=== PATIENT | male | born 1990 | race Caucasian/White ===

== ENCOUNTER 2019-09-10 15:56 | Emergency (ER) | payer OTHER ==
[2019-09-10] MEDS ORDERED: ACETAMINOPHEN 325 MG TABLET PO ONE (16:28)
--- NOTE | 2019-09-10 17:16 | RADIOLOGY REPORT (SQ) ---
EXAM DESCRIPTION: CHEST 2 VIEWS COMPLETED DATE/TIME: 09/10/2019 4:58 pm REASON FOR STUDY: SOB COMPARISON: None. NUMBER OF VIEWS: Two view. TECHNIQUE: Frontal and lateral radiographic views of the chest acquired. LIMITATIONS: None. FINDINGS: LUNGS AND PLEURA: Peribronchial cuffing and interstitial changes. No consolidation, effus ion, or pneumothorax. MEDIASTINUM AND HILAR STRUCTURES: No masses. No contour abnormalities. HEART AND VASCULAR STRUCTURES: Heart normal in size and contour. No evidence for failure. BONES: No acute findings. HARDWARE: None in the chest. OTHER: No other significant finding. IMPRESSION: REACTIVE AIRWAY DISEASE VERSUS VIRAL SYNDROME. NO CONSOLIDATION. TECHNICAL DOCUMENTATION: JOB ID: [id number] [employer]- All Rights Reserved Reading location - IP/workstation name: [email or web address]
[2019-09-10 17:35] VITALS: BP 118/75
--- NOTE | 2019-09-10 17:37 | ER Document Report ---
HPI - HPI Patient complains to provider of: fever Time Seen by Provider: 09/10/19 16:28 Pain Level: 4 Context: Patient is an otherwise healthy 29-year-old male presents to the emergency department with a fever for the last 4 days. Patient also voices for generalized cough and congestion. States he also has a sore throat. Patient voices he is up-to-date on immunizations, takes no daily medications, voices an allergy to penicillin. Patient is denying any nausea, vomiting, shortness of breath, chest pain. Patient voices his and child were recently diagnosed with pneumonia. Voices last time he took Motrin was approximately 1400 hrs. - CONSTITUTIONAL Constitutional: REPORTS: Fever - RESPIRATORY Respiratory: REPORTS: Coughing Past Medical History - General Information source: Patient - Social History Smoking Status: Never Smoker Chew tobacco use (# tins/day): No Frequency of alcohol use: Occasional Drug Abuse: None Family History: Reviewed & Not Pertinent Patient has suicidal ideation: No Patient has homicidal ideation: No Vertical Provider Document - CONSTITUTIONAL Agree With Documented VS: Yes Notes: GENERAL: Alert, interacts well. No acute distress. HEAD: Normocephalic, atraumatic. EYES: Pupils equal, round, and reactive to light. Extraocular movements intact. ENT: Oral mucosa moist, tongue midline. Nares patent, TM's intact, nonerythematous, nonbulging bilaterally. Pharynx minorly erythematous, tonsils +2 bilaterally and symmetrical. Exudate noted. No palatal petechiae noted. NECK: Full range of motion. Supple. Trachea midline. No lymphadenopathy appreciated LUNGS: Clear to auscultation bilaterally, no wheezes, rales, or rhonchi. No respiratory distress. HEART: Regular rate and rhythm. No murmur ABDOMEN: Soft, non-tender. Non-distended. Bowel sounds present in all 4 quadrants. EXTREMITIES: Moves all 4 extremities spontaneously. No edema, normal radial and dorsalis pedis pulses bilaterally. No cyanosis. BACK: no cervical, thoracic, lumbar midline tenderness. No saddle anesthesia, normal distal neurovascular exam. NEUROLOGICAL: Alert and oriented x3. Normal speech. cranial nerves II through XII grossly intact. PSYCH: Normal affect, normal mood. SKIN: Warm, dry, normal turgor. No rashes or lesions noted. Course - Re-evaluation Re-evalutation: 09/10/19 17:35 Laboratory 09/10/19 16:30 Group A Strep Rapid NEGATIVE Chest X-Ray 09/10/19 16:28 IMPRESSION: REACTIVE AIRWAY DISEASE VERSUS VIRAL SYNDROME. NO CONSOLIDATION. Discussed with patient likely diagnosis of viral illness. Discussed staying up on Tylenol or Motrin for generalized fevers and body aches. Discussed staying well-hydrated. Discussed close follow-up with primary care provider. Patient stable for discharge. - Vital Signs Vital signs: Temp Pulse Resp BP Pulse Ox 98.8 F 107 H 16 132/73 H 97 09/10/19 16:01 09/10/19 16:01 09/10/19 16:01 09/10/19 16:01 09/10/19 16:01 Discharge - Discharge Clinical Impression: Sore throat Upper respiratory infection Qualifiers: URI type: unspecified viral URI Qualified Code(s): J06.9 - Acute upper respiratory infection, unspecified Condition: Stable Disposition: HOME, SELF-CARE Instructions: Fever ([facility]), Sore Throat ([facility]), Upper Respiratory Illness ([facility]), Viral Syndrome ([facility]) Additional Instructions: As we discussed you have been seen and treated in the emergency department for an upper respiratory infection. Your chest x-ray reveals no signs of pneumonia. Your rapid strep test was negative for bacteria. We do always send your rapid strep test for culture. Should it grow bacteria in the hospital will call you. Please take [id number] Tylenol or Motrin for generalized body aches and fevers. Please also stay well-hydrated. Please follow-up with your primary care provider in the next 12 to 24 hours. Return to the emergency room for any concerns. Prescriptions: Benzonatate [Tessalon Perles 100 mg Capsule] 100 mg PO Q8HP PRN #40 capsule PRN Reason: Forms: Return to Work
== END 2019-09-10 17:44 | disposition home or self-care (01) ==
LOC: ER 15:56
DX: J06.9 Acute upper respiratory infection, unspecified (principal); B97.89 Other viral agents as the cause of diseases classified elsewhere; R50.9 Fever, unspecified; R05 Cough; J02.9 Acute pharyngitis, unspecified; Z88.0 Allergy status to penicillin
CPT/HCPCS: 71046; 87070; 87880; 99283

== ENCOUNTER 2020-04-14 22:17 | Emergency (ER) | payer OTHER ==
[2020-04-15] MEDS ORDERED: ASPIRIN 81 MG TABLET, CHEWABLE PO ONE (00:30)
--- NOTE | 2020-04-15 00:32 | ER Document Report ---
ED Medical Screen (RME) - General Chief Complaint: Chest Pain Stated Complaint: CHEST PAIN, ANXIETY Time Seen by Provider: 04/15/20 00:25 Notes: HPI: 29-year-old male who is otherwise healthy presenting for 6 or 7 episodes of an intermittent sharp chest pain in the left chest without accompanying shortness of breath or radiation into the neck or shoulder. Patient became very concerned about the chest discomfort this evening. Currently pain-free. No family history of early coronary artery disease. Patient states that he normally works out daily and does not get exertional chest pain or significant shortness of breath with workouts. Patient did mow the lawn yesterday he is unsure whether he may have pulled something or whether this is something to be concerned about PHYSICAL EXAMINATION: No reproducible pain on the chest wall on palpation. Lung sounds are clear to auscultation regular rate and rhythm, initial onset of discomfort was 9 hours ago I have greeted and performed a rapid initial assessment of this patient. A c omprehensive ED assessment and evaluation of the patient, analysis of test results and completion of medical decision making process will be conducted by an additional ED providers. - Related Data Allergies/Adverse Reactions: amoxicillin Allergy (Verified 09/10/19 16:29) Physical Exam - Vital signs Vitals: Temp Pulse Resp BP Pulse Ox 98.8 F 77 16 138/83 H 98 04/14/20 23:05 04/14/20 23:05 04/14/20 23:05 04/14/20 23:05 04/14/20 23:05 Course - Vital Signs Vital signs: Temp Pulse Resp BP Pulse Ox 98.8 F 77 16 138/83 H 98 04/15/20 00:26 04/14/20 23:05 04/14/20 23:05 04/14/20 23:05 04/14/20 23:05
[2020-04-15 00:46] LABS: ABSOLUTE LYMPHOCYTES (AUTO) 2.5 10^3/uL (0.5-4.7); ABSOLUTE MONOCYTES (AUTO) 0.7 10^3/uL (0.1-1.4); ABSOLUTE NEUT (AUTO) 6.5 10^3/uL (1.7-8.2); BASOPHILS % (AUTO) 0.4 % (0-2); EOSINOPHILS % (AUTO) 0.4 % (0-6); HEMATOCRIT 45.1 % (37.9-51.0); LYMPHOCYTES % (AUTO) 25.4 % (13-45); MEAN CORPUSCULAR HEMOGLOBIN 31.8 pg (27.0-33.4); MEAN CORPUSCULAR HGB CONC 35.5 g/dL (32.0-36.0); MEAN CORPUSCULAR VOLUME 89 fl (80-97); MONOCYTES % (AUTO) 6.9 % (3-13); PLATELET COUNT 225 10^3/uL (150-450); RED BLOOD COUNT 5.05 10^6/uL (4.35-5.55); SEGMENTED NEUTROPHILS % (AUTO) 66.9 % (42-78); TOTAL CELLS COUNTED % (AUTO) 100 %; WHITE BLOOD COUNT 9.8 10^3/uL (4.0-10.5)
--- NOTE | 2020-04-15 00:57 | RADIOLOGY REPORT (SQ) ---
EXAM DESCRIPTION: XR CHEST 2 VIEWS COMPLETED DATE/TME: 04/15/2020 00:30 CLINICAL HISTORY: 29 years, Male, chest pain COMPARISON: None. NUMBER OF VIEWS: TECHNIQUE: LIMITATIONS: None. FINDINGS: No evidence of pulmonary infiltrate or pleural effusion. The heart and mediastinum are unremarkable. Pulmonary vascularity appears normal. IMPRESSION: Normal chest x-ray. copyright 2010 [employer]- All Rights Reserved
[2020-04-15 00:58] LABS: ALBUMIN 5.2 g/dL (3.5-5.0); ALKALINE PHOSPHATASE 74 U/L (38-126); ANION GAP 10 (5-19); ASPARTATE AMINO TRANSFERASE 29 U/L (17-59); BILIRUBIN,TOTAL 0.7 mg/dL (0.2-1.3); BLOOD UREA NITROGEN 20 mg/dL (7-20); CALCIUM 10.4 mg/dL (8.4-10.2); CARBON DIOXIDE 28 mmol/L (22-30); CHLORIDE 102 mmol/L (98-107); CREATINE KINASE 95 U/L (55-170); GLUCOSE 108 mg/dL (75-110); POTASSIUM 4.2 mmol/L (3.6-5.0); TOTAL PROTEIN 8.5 g/dL (6.3-8.2)
[2020-04-15 01:18] LABS: CREATINE KINASE MB 0.34 ng/mL (<4.55)
[2020-04-15 01:19] LABS: TROPONIN I < 0.012 ng/mL
--- NOTE | 2020-04-15 05:28 | ER Document Report ---
ED General - General Chief Complaint: Chest Pain Stated Complaint: CHEST PAIN, ANXIETY Time Seen by Provider: 04/15/20 00:25 Mode of Arrival: Ambulatory Information source: Patient Notes: 29-year-old male patient presenting to the emergency department chief complaint of left-sided chest pain that started earlier this afternoon. He reports this caused him some anxiety. He denies any nausea, vomiting, shortness of breath or diaphoresis. Denies any recent cough or congestion. Denies any increased activity. He has not had pain like this before in the past. He is a non-smoker and has no cardiac history. TRAVEL OUTSIDE OF THE [place] IN LAST 30 DAYS: No - HPI Patient complains to provider of: chest pain Onset: Yesterday Onset/Duration: Intermittent Quality of pain: Pressure Severity: Moderate Similar symptoms previously: No Recently seen / treated by doctor: No - Related Data Allergies/Adverse Reactions: amoxicillin Allergy (Verified 09/10/19 16:29) Past Medical History - General Information source: Patient - Social History Smoking Status: Never Smoker Frequency of alcohol use: None Drug Abuse: None Family History: Reviewed & Not Pertinent Patient has homicidal ideation: No - Medical History Medical History: Negative Surgical Hx: Negative - Immunizations Immunizations up to date: Yes Review of Systems - Review of Systems Constitutional: No symptoms reported EENT: No symptoms reported Cardiovascular: See HPI Respiratory: No symptoms reported Gastrointestinal: No symptoms reported Genitourinary: No symptoms reported Male Genitourinary: No symptoms reported Musculoskeletal: No symptoms reported Skin: No symptoms reported Hematologic/Lymphatic: No symptoms reported Neurological/Psychological: No symptoms reported Physical Exam - Vital signs Vitals: Temp Pulse Resp BP Pulse Ox 98.8 F 77 16 138/83 H 98 04/14/20 23:05 04/14/20 23:05 04/14/20 23:05 04/14/20 23:05 04/14/20 23:05 - Notes Notes: PHYSICAL EXAMINATION: GENERAL: Well-appearing, well-nourished and in no acute distress. HEAD: Atraumatic, normocephalic. EYES: Pupils equal round and reactive to light, extraocular movements intact, sclera anicteric, conjunctiva are normal. ENT: Nares patent, oropharynx clear without exudates. Moist mucous membranes. NECK: Normal range of motion, supple without lymphadenopathy LUNGS: Breath sounds clear to auscultation bilaterally and equal. No wheezes rales or rhonchi. HEART: Regular rate and rhythm without murmurs ABDOMEN: Soft, nontender, nondistended abdomen. No guarding, no rebound. No masses appreciated. Musculoskeletal: Normal range of motion, no pitting or edema. No cyanosis. NEUROLOGICAL: Cranial nerves grossly intact. Normal speech, normal gait. Normal sensory, motor exams PSYCH: Normal mood, normal affect. SKIN: Warm, Dry, normal turgor, no rashes or lesions noted. Course - Re-evaluation Re-evalutation: Laboratory 04/15/20 04/15/20 04/15/20 00:35 00:35 00:35 WBC 9.8 RBC 5.05 Hgb 16.0 Hct 45.1 MCV 89 MCH 31.8 MCHC 35.5 RDW 13.0 Plt Count 225 Lymph % (Auto) 25.4 [place] % (Auto) 6.9 Eos % (Auto) 0.4 Baso % (Auto) 0.4 Absolute Neuts (auto) 6.5 Absolute Lymphs (auto) 2.5 Absolute Monos (auto) 0.7 Absolute Eos (auto) 0.0 Absolute Basos (auto) 0.0 Seg Neutrophils % 66.9 Sodium 139.9 Potassium 4.2 Chloride 102 Carbon Dioxide 28 Anion Gap 10 BUN 20 Creatinine 1.19 Est GFR ( Amer) > 60 Est GFR (MDRD) Non-Af > 60 Glucose 108 Calcium 10.4 H Total Bilirubin 0.7 Direct Bilirubin 0.0 Neonat Total Bilirubin Not Reportable Neonat Direct Bilirubin Not Reportable Neonat Indirect Bili Not Reportable AST 29 ALT 30 Alkaline Phosphatase 74 Creatine Kinase 95 CK-MB (CK-2) 0.34 Troponin I < 0.012 Total Protein 8.5 H Albumin 5.2 H 04/15/20 03:20 WBC RBC Hgb Hct MCV MCH MCHC RDW Plt Count Lymph % (Auto) [place] % (Auto) Eos % (Auto) Baso % (Auto) Absolute Neuts (auto) Absolute Lymphs (auto) Absolute Monos (auto) Absolute Eos (auto) Absolute Basos (auto) Seg Neutrophils % Sodium Potassium Chloride Carbon Dioxide Anion Gap BUN Creatinine Est GFR ( Amer) Est GFR (MDRD) Non-Af Glucose Calcium Total Bilirubin Direct Bilirubin Neonat Total Bilirubin Neonat Direct Bilirubin Neonat Indirect Bili AST ALT Alkaline Phosphatase Creatine Kinase CK-MB (CK-2) Troponin I < 0.012 Total Protein Albumin Laboratory 04/15/20 04/15/20 04/15/20 00:35 00:35 00:35 WBC 9.8 RBC 5.05 Hgb 16.0 Hct 45.1 MCV 89 MCH 31.8 MCHC 35.5 RDW 13.0 Plt Count 225 Lymph % (Auto) 25.4 [place] % (Auto) 6.9 Eos % (Auto) 0.4 Baso % (Auto) 0.4 Absolute Neuts (auto) 6.5 Absolute Lymphs (auto) 2.5 Absolute Monos (auto) 0.7 Absolute Eos (auto) 0.0 Absolute Basos (auto) 0.0 Seg Neutrophils % 66.9 Sodium 139.9 Potassium 4.2 Chloride 102 Carbon Dioxide 28 Anion Gap 10 BUN 20 Creatinine 1.19 Est GFR ( Amer) > 60 Est GFR (MDRD) Non-Af > 60 Glucose 108 Calcium 10.4 H Total Bilirubin 0.7 Direct Bilirubin 0.0 Neonat Total Bilirubin Not Reportable Neonat Direct Bilirubin Not Reportable Neonat Indirect Bili Not Reportable AST 29 ALT 30 Alkaline Phosphatase 74 Creatine Kinase 95 CK-MB (CK-2) 0.34 Troponin I < 0.012 Total Protein 8.5 H Albumin 5.2 H 04/15/20 03:20 WBC RBC Hgb Hct MCV MCH MCHC RDW Plt Count Lymph % (Auto) [place] % (Auto) Eos % (Auto) Baso % (Auto) Absolute Neuts (auto) Absolute Lymphs (auto) Absolute Monos (auto) Absolute Eos (auto) Absolute Basos (auto) Seg Neutrophils % Sodium Potassium Chloride Carbon Dioxide Anion Gap BUN Creatinine Est GFR ( Amer) Est GFR (MDRD) Non-Af Glucose Calcium Total Bilirubin Direct Bilirubin Neonat Total Bilirubin Neonat Direct Bilirubin Neonat Indirect Bili AST ALT Alkaline Phosphatase Creatine Kinase CK-MB (CK-2) Troponin I < 0.012 Total Protein Albumin Chest X-Ray 04/15/20 00:30 IMPRESSION: Normal chest x-ray. copyright 2010 [employer]- All Rights Reserved Presentation of chest pain in an otherwise well appearing patient. Low clinical suspicion for ACS given clinical history, exam, EKG without ST elevations or depressions, and negative initial troponin. HEART score less than or equal to 3. PE also seems unlikely given clinical history, absence of tachycardia or dy spnea. Patient is PERC criteria negative. CXR without evidence of pneumothorax or pneumonia. No widened mediastinum. Aortic dissection also seems unlikely given history, symmetric pulses, CXR, and vitals. HEART Score: History 0 ECG 0 Age 0 Risk Factors 0 Troponin 0 Total: 0 Chest pain in a patient without evidence of cardiac or other serious etiology on workup today. I discussed with patient that, based on their age, risk factors and emergency department testing today, the likelihood that their symptoms are related to a heart attack is very low (estimated risk of heart attack or over the next 30 days of less than 1%). The patient demonstrates decision making capacity and has verbalized an understanding of these risks to me. Based on this, the patient has chosen to follow-up as an outpatient. Usual chest pain return precautions reviewed. The patient states understanding and agreement with this plan. - Vital Signs Vital signs: Temp Pulse Resp BP Pulse Ox 98.0 F 77 13 113/78 95 04/15/20 05:27 04/14/20 23:05 04/15/20 05:27 04/15/20 05:27 04/15/20 05:27 - Laboratory Result Diagrams: 04/15/20 00:35 04/15/20 00:35 Laboratory results interpreted by me: 04/15/20 00:35 Calcium 10.4 H Total Protein 8.5 H Albumin 5.2 H - EKG Interpretation by Me EKG shows normal: Sinus rhythm Rate: Normal Rhythm: NSR - Normal axis, no ST segment elevations or depressions. Discharge - Discharge Clinical Impression: Chest pain Qualifiers: Chest pain type: unspecified Qualified Code(s): R07.9 - Chest pain, unspecified Condition: Stable Disposition: HOME, SELF-CARE Additional Instructions: Chest Pain of Unclear Cause The exact cause of your chest pain isn't clear. Fortunately, there is no evidence of a dangerous medical condition. Further testing may be required to find the source of the pain. Most often, we find that this pain is coming from the chest wall -- the muscles or rib joints in the chest. But chest pain can come from the lung and lung lining, the esophagus, the heart valves or heart lining, and even the stomach or gallbladder. Rest. Eat lightly until the pain is gone. We may prescribe medicine for pain and inflammation. You should call the physician immediately if the pain radiates to the shoulder, jaw or arms; if you start to run a fever or develop a cough; or if you develop shortness of breath, or other new or alarming symptoms.
[2020-04-15 05:37] VITALS: BP 113/78
--- NOTE | 2020-04-15 12:04 | EKG REPORT ---
SEVERITY:- BORDERLINE ECG - SINUS RHYTHM PROBABLE LEFT ATRIAL ABNORMALITY : Confirmed by: Kathya Ordonez MD 15-Apr-2020 12:03:14
== END 2020-04-15 05:37 | disposition home or self-care (01) ==
LOC: ER 22:17
DX: R07.9 Chest pain, unspecified (principal); F41.9 Anxiety disorder, unspecified; Z88.0 Allergy status to penicillin
CPT/HCPCS: 36415; 71046; 80053; 82550; 82553; 84484; 85025; 93005; 93010; 99284

== ENCOUNTER 2020-05-23 10:29 | Emergency (ER) | payer OTHER ==
[2020-05-23] MEDS ORDERED: ONDANSETRON HCL INJ/PF 4 MG/2 ML SDV IV ONE (10:38)
[2020-05-23] MEDS ORDERED: KETOROLAC TROMETHAMINE INJ/PF 30 MG/1 ML SDV IV ONE (10:38)
[2020-05-23] MEDS ORDERED: NORMAL SALINE 1000 ML 1,000 ML IV ONE (10:38)
--- NOTE | 2020-05-23 10:42 | ER Document Report ---
ED Medical Screen (RME) - General Chief Complaint: Flank Pain Stated Complaint: LEFT FLANK PAIN Time Seen by Provider: 05/23/20 10:36 Notes: 29-year-old male presented to ED for complaint of severe left flank pain radiating down to his left groin area. He stated it started about 915 this morning. He states he has nausea 2. He states he has had pain off and on for the last 2 days. He states he needs to urinate more frequently than normal. Patient is alert oriented respirations regular nonlabored speaking in full sentences. I have greeted and performed a rapid initial assessment of this patient. A comprehensive ED assessment and evaluation of the patient, analysis of test results and completion of medical decision making process will be conducted by an additional ED providers. TRAVEL OUTSIDE OF THE [place] IN LAST 30 DAYS: No - Related Data Allergies/Adverse Reactions: amoxicillin Allergy (Verified 09/10/19 16:29) Past Medical History - Immunizations Immunizations up to date: Yes Physical Exam - Vital signs Vitals: Temp Pulse Resp BP Pulse Ox 98.7 F 73 18 134/89 H 100 05/23/20 10:38 05/23/20 10:38 05/23/20 10:38 05/23/20 10:38 05/23/20 10:38 Course - Vital Signs Vital signs: Temp Pulse Resp BP Pulse Ox 98.7 F 73 18 134/89 H 100 05/23/20 10:38 05/23/20 10:38 05/23/20 10:38 05/23/20 10:38 05/23/20 10:38
[2020-05-23 11:21] LABS: ABSOLUTE EOSINOPHILS # (AUTO) 0.1 10^3/uL (0.0-0.6); ABSOLUTE LYMPHOCYTES (AUTO) 2.5 10^3/uL (0.5-4.7); ABSOLUTE MONOCYTES (AUTO) 0.6 10^3/uL (0.1-1.4); ABSOLUTE NEUT (AUTO) 4.1 10^3/uL (1.7-8.2); BASOPHILS % (AUTO) 0.5 % (0-2); EOSINOPHILS % (AUTO) 0.8 % (0-6); HEMATOCRIT 47.5 % (37.9-51.0); HEMOGLOBIN 16.6 g/dL (13.5-17.0); LYMPHOCYTES % (AUTO) 34.3 % (13-45); MEAN CORPUSCULAR HEMOGLOBIN 31.2 pg (27.0-33.4); MEAN CORPUSCULAR VOLUME 89 fl (80-97); MONOCYTES % (AUTO) 7.6 % (3-13); PLATELET COUNT 228 10^3/uL (150-450); RED BLOOD COUNT 5.33 10^6/uL (4.35-5.55); RED CELL DISTRIBUTION WIDTH 13.2 % (11.5-14.0); SEGMENTED NEUTROPHILS % (AUTO) 56.8 % (42-78); TOTAL CELLS COUNTED % (AUTO) 100 %; WHITE BLOOD COUNT 7.3 10^3/uL (4.0-10.5)
[2020-05-23 11:42] LABS: ALBUMIN 4.9 g/dL (3.5-5.0); ALKALINE PHOSPHATASE 78 U/L (38-126); ANION GAP 11 (5-19); ASPARTATE AMINO TRANSFERASE 28 U/L (17-59); BILIRUBIN,TOTAL 1.3 mg/dL (0.2-1.3); BLOOD UREA NITROGEN 15 mg/dL (7-20); CALCIUM 10.1 mg/dL (8.4-10.2); CARBON DIOXIDE 22 mmol/L (22-30); CHLORIDE 105 mmol/L (98-107); GLUCOSE 151 mg/dL (75-110); TOTAL PROTEIN 8.1 g/dL (6.3-8.2)
[2020-05-23 11:50] LABS: APPEARANCE,URINE SLIGHTLY-CLOUDY; BILIRUBIN,URINE NEGATIVE (NEGATIVE); COLOR,URINE YELLOW; GLUCOSE, URINE NEGATIVE (NEGATIVE); KETONES,URINE NEGATIVE (NEGATIVE); LEUKOCYTE ESTERASE,URINE NEGATIVE (NEGATIVE); NITRITE,URINE NEGATIVE (NEGATIVE); PROTEIN,URINE 30 mg/dL (NEGATIVE); URINE SPECIFIC GRAVITY 1.027
--- NOTE | 2020-05-23 12:04 | RADIOLOGY REPORT (SQ) ---
EXAM DESCRIPTION: CT ABD/PELVIS NO ORAL OR IV IMAGES COMPLETED DATE/TIME: 05/23/2020 11:36 am REASON FOR STUDY: left flank pain nausea COMPARISON: None. TECHNIQUE: CT scan of the abdomen and pelvis performed without intravenous or oral contrast. Images reviewed with lung, soft tissue, and bone windows. Reconstructed coronal and sagittal MPR images revi ewed. All images stored on PACS. All CT scanners at this facility use dose modulation, iterative reconstruction, and/or weight based d osing when appropriate to reduce radiation dose to as low as reasonably achievable (ALARA). [facility]: Dose Right [facility]: CareDose [facility]: Dose Right [facility]: Teradose 4D [facility]: LumiGrow RADIATION DOSE: CT Rad equipment meets quality standard of care and radiation dose reduction techniq ues were employed. CTDIvol: 5.4 mGy. DLP: 317 mGy-cm.mGy. LIMITATIONS: None. FINDINGS: LOWER CHEST: No significant findings. No nodules or infiltrates. NON-CONTRASTED LIVER, SPLEEN, ADRENALS: Evaluation limited by lack of IV contrast. No identified sign ificant masses. PANCREAS: No masses. No peripancreatic inflammatory changes. GALLBLADDER: No identified stones by CT criteria. No inflammatory changes to suggest cholecystitis. RIGHT KIDNEY AND URETER: No suspicious masses. Assessment limited by lack of IV contrast. No signif icant calcifications. No hydronephrosis or hydroureter. LEFT KIDNEY AND URETER: No suspicious masses. Assessment limited by lack of IV contrast. No signifi cant calcifications. No hydronephrosis or hydroureter. AORTA AND RETROPERITONEUM: No aneurysm. No retroperitoneal masses or adenopathy. BOWEL AND PERITONEAL CAVITY: No obvious masses or inflammatory changes. No free fluid. APPENDIX: Normal. PELVIS, BLADDER, AND ABDOMINAL WALL:No abnormal masses. No free fluid. Bladder normal. BONES: No significant findings. OTHER: No other significant finding. IMPRESSION: NO SIGNIFICANT OR ACUTE PROCESS IN THE ABDOMEN OR PELVIS. COMMENT: Quality ID # [id number]: Final reports with documentation of one or more dose reduction techniques (e.g., Automated exposure control, adjustment of the mA and/or kV according to patient size, use of iterative reconstruction technique) TECHNICAL DOCUMENTATION: JOB ID: [id number] 2010 [employer]- All Rights Reserved Reading location - IP/workstation name: [email or web address]
--- NOTE | 2020-05-23 12:37 | ER Document Report ---
ED General - General Chief Complaint: Flank Pain Stated Complaint: LEFT FLANK PAIN Time Seen by Provider: 05/23/20 10:36 Mode of Arrival: Ambulatory Information source: Patient TRAVEL OUTSIDE OF THE [place] IN LAST 30 DAYS: No - HPI Notes: Patient presents with the sudden onset of severe sharp left flank pain. He states he is had 2 separate episodes over this morning. He states he was in a normal state of health until this. Nothing made the pain better or worse. It did radiate down the left lower part of his abdomen. He states he has had some urgency but otherwise no problems with urination. He has not noticed any blood. No previous history of kidney stones. No recent trauma. He was nauseous but no vomiting or diarrhea. No fevers. The pain is been intermittent and severe. - Related Data Allergies/Adverse Reactions: amoxicillin Allergy (Verified 05/23/20 10:50) Past Medical History - General Information source: Patient - Social History Smoking Status: Never Smoker Frequency of alcohol use: None Drug Abuse: None Family History: Reviewed & Not Pertinent - Immunizations Immunizations up to date: Yes Review of Systems - Review of Systems Constitutional: denies: Chills, Fever Cardiovascular: denies: Chest pain, Palpitations Respiratory: denies: Cough, Short of breath -: Yes All other systems reviewed and negative Physical Exam - Vital signs Vitals: Temp Pulse Resp BP Pulse Ox 98.7 F 73 18 134/89 H 100 05/23/20 10:38 05/23/20 10:38 05/23/20 10:38 05/23/20 10:38 05/23/20 10:38 Interpretation: Normal - General General appearance: Appears well, Alert - HEENT Head: Normocephalic, Atraumatic Eyes: Normal Pupils: PERRL - Respiratory Respiratory status: No respiratory distress Chest status: Nontender Breath sounds: Normal Chest palpation: Normal - Cardiovascular Rhythm: Regular Heart sounds: Normal auscultation Murmur: No - Abdominal Inspection: Normal Distension: No distension Bowel sounds: Normal Tenderness: Nontender Organomegaly: No organomegaly - Back Back: Normal, Nontender - Extremities General upper extremity: Normal inspection, Nontender, Normal color, Normal ROM, Normal temperature General lower extremity: Normal inspection, Nontender, Normal color, Normal ROM, Normal temperature, Normal weight bearing. No: Garcia's sign - Neurological Neuro grossly intact: Yes Cognition: Normal Orientation: AAOx4 Caprice Coma Scale Eye Opening: Spontaneous Caprice Coma Scale Verbal: Oriented Caprice Coma Scale Motor: Obeys Commands Caprice Coma Scale Total: 15 Speech: Normal Motor strength normal: LUE, RUE, LLE, RLE Sensory: Normal - Psychological Associated symptoms: Normal affect, Normal mood - Skin Skin Temperature: Warm Skin Moisture: Dry Skin Color: Normal Course - Re-evaluation Re-evalutation: 05/23/20 12:35 Patient presents with an episode of severe left flank pain that is very consistent with a kidney stone. His urine shows blood which would also be consistent with a kidney stone. There are a few white cells so we will treat the patient with [address] is unremarkable so it appears the patient has passed the stone at this time. - Vital Signs Vital signs: Temp Pulse Resp BP Pulse Ox 98.7 F 73 18 134/89 H 100 05/23/20 10:38 05/23/20 10:38 05/23/20 10:38 05/23/20 10:38 05/23/20 10:38 - Laboratory Result Diagrams: 05/23/20 11:09 05/23/20 11:09 Laboratory results interpreted by me: 05/23/20 05/23/20 11:09 11:09 Glucose 151 H Urine Protein 30 H Urine Blood MODERATE H Urine Urobilinogen 2.0 H - Diagnostic Test Radiology reviewed: Image reviewed, Reports reviewed Discharge - Discharge Clinical Impression: Ureteral stone Condition: Stable Disposition: HOME, SELF-CARE Instructions: Kidney Stone ([facility]) Prescriptions: Nitrofurantoin Monohyd/M-Cryst [Macrobid 100 mg Capsule] 100 mg PO BID 3 Days #6 cap Forms: Return to Work Referrals: ANI ALTAMIRANO MD [NO LOCAL MD] - Follow up as needed
[2020-05-23 12:44] VITALS: BP 112/63
== END 2020-05-23 12:43 | disposition home or self-care (01) ==
LOC: ER 10:29
DX: N20.1 Calculus of ureter (principal); R10.9 Unspecified abdominal pain; R31.9 Hematuria, unspecified; R11.0 Nausea; Z88.0 Allergy status to penicillin
CPT/HCPCS: 99285; 96374; 96375; 36415; 87086; 85025; 80053; 81001; 74176; J1885; J2405; J7030

== ENCOUNTER 2020-06-07 08:43 | Emergency (ER) | payer OTHER ==
--- NOTE | 2020-06-07 10:06 | ER Document Report ---
ED General - General Chief Complaint: Possible Kidney Stone Stated Complaint: LEFT FLANK PAIN Time Seen by Provider: 06/07/20 09:05 TRAVEL OUTSIDE OF THE [place] IN LAST 30 DAYS: No - HPI Notes: Chief complaint: Left flank pain History of present illness: 29-year-old male previously seen here approximately [address] Cleaning with what was felt clinically to be an episode of renal colic now returns with recurrence of similar pain though far less severe than his previous episode. I reviewed notes from his prior visit. We note that he had a normal noncontrast CT abdomen pelvis at that time. His urinalysis showed a few white cells and a few red cells. Patient was advised that he had probably already passed a small stone and was sent out on some Macrobid and advised to follow-up with urology outpatient and also to increase oral fluids. He was asymptomatic up until this morning when he developed sharp pain in his left flank area about 4/10 intensity. This was nonradiating. There was no associated nausea, vomiting, fever or chills. He denies any dysuria. He denies any known family history of renal stones. Patient has not been back to see urology. He is no longer taking any medications. Has a history of allergy to amoxicillin. 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 - Related Data Allergies/Adverse Reactions: amoxicillin Allergy (Verified 06/07/20 09:12) Past Medical History - General Information source: Patient, [facility], [facility] Records - Social History Smoking Status: Never Smoker Frequency of alcohol use: Occasional Drug Abuse: None Lives with: Family Family History: Reviewed & Not Pertinent - Medical History Medical History: Negative Renal/ Medical History: Reports: Hx Kidney Stones Surgical Hx: Negative - Immunizations Immunizations up to date: Yes Review of Systems - Review of Systems Notes: Constitutional: Negative for fever. HENT: Negative for sore throat. Eyes: Negative for visual changes. Cardiovascular: Negative for chest pain. Respiratory: Negative for shortness of breath. Gastrointestinal: Negative for abdominal pain, vomiting or diarrhea. Genitourinary: As per HPI. Musculoskeletal: Negative for back pain. Skin: Negative for rash. Neurological: Negative for headaches, weakness or numbness. 10 point ROS negative except as marked above and in HPI. Physical Exam - Vital signs Vitals: Temp Pulse Resp BP Pulse Ox 97.7 F 62 16 138/84 H 98 06/07/20 08:46 06/07/20 08:46 06/07/20 08:46 06/07/20 08:46 06/07/20 08:46 - Notes Notes: GENERAL: Slender male approximately stated age appearing in no acute distress. SKIN: Good turgor no rashes. HEAD: Normocephalic atraumatic. EYES: PERRLA. EOMI. Conjunctivae and sclerae clear. EARS: CANALS AND TMS CLEAR. NOSE: CLEAR. MOUTH: Moist mucosa. Good dentition. No stridor or edema. No drooling. NECK: Supple. No masses or thyromegaly. No adenopathy. Carotids 2+ without bruits. No JVD. BACK: Symmetrical without tenderness. CHEST: Respirations unlabored. Breath sounds clear and symmetrical. HEART: Regular rhythm. No murmur gallop or rub. ABDOMEN: Soft nontender without masses, organomegaly or rebound. Bowel sounds normally active. No bruits. GENITALIA: Deferred. EXTREMITIES: No edema. No calf tenderness. Cap refill less than 1.5 seconds. Dorsalis pedis and posterior tibial pulses 3+ and symmetrical. NEUROLOGICAL: GCS 15. Alert and oriented x3. Normal gait. Fluent speech. Cranial nerves II through XII intact. Sensorimotor and cerebellar normal. Normal tone. PSYCHIATRIC: Appropriate affect. Course - Re-evaluation Re-evalutation: A repeat urinalysis today showed positive dipstick for blood with 1 red cell and no white cells. Remainder of his evaluation is unremarkable. Looking at the overall clinical picture I think he likely passed a small stone within the last 2 weeks and may be having some intermittent residual minimal spasm of the left ureter. I advised him to increase oral fluids and take Tylenol or ibuprofen as needed. He should return here if he develops high fever, shaking chills, nausea/vomiting, gross hematuria or overall worsening. He can otherwise follow- up with urology on outpatient basis as previously advised. Findings, clinical impression and plan of treatment have been discussed with patient/family. Understanding of current findings and recommendations has been acknowledged by them and there is agreement regarding disposition and follow-up. 06/07/20 10:35 - Vital Signs Vital signs: Temp Pulse Resp BP Pulse Ox 97.7 F 62 16 138/84 H 98 06/07/20 09:06 06/07/20 08:46 06/07/20 08:46 06/07/20 08:46 06/07/20 08:46 - Laboratory Laboratory results interpreted by me: 06/07/20 10:05 Urine Blood MODERATE H Discharge - Discharge Clinical Impression: Renal colic on left side Condition: Stable Disposition: HOME, SELF-CARE Additional Instructions: Kidney Stone You are passing or have passed a kidney stone. These stones are usually due to increased calcium or uric acid concentrations in your urine. Stones within the kidney itself are not painful. The pain occurs as the stone leaves the kidney to pass down the long tube, called the ureter, leading to the bladder. If the stone is small, it will usually pass by itself. Most patients can pass the stone at home. You will usually receive medications for pain, nausea or vomiting, and sometimes a medication to assist in passing the kidney stone. However, if the pain is very severe or if vomiting prevents you from taking oral pain medications, you may need to return for further treatment. Drink three or four quarts of fluids per day. You will be given pain medication (if needed) and urine strainers. Strain all your urine to see if the stone passes. If your doctor has asked you to bring the stone in for analysis, return with the stone once it has passed. Return if pain or vomiting become severe, if you develop a high fever, if you are unable to pass your urine, or if other unusual symptoms occur. Increase oral fluids. Return here as needed for new or worsening symptoms: Pain that is worsening or unimproved Visible blood in urine Uncontrolled vomiting High fever or shaking chills Overall worsening Follow-up with urology as previously advised. Referrals: ANI ALTAMIRANO MD [NO LOCAL MD] - Follow up as needed
[2020-06-07 10:26] LABS: APPEARANCE,URINE CLEAR; BILIRUBIN,URINE NEGATIVE (NEGATIVE); COLOR,URINE STRAW; GLUCOSE, URINE NEGATIVE (NEGATIVE); KETONES,URINE NEGATIVE (NEGATIVE); PROTEIN,URINE NEGATIVE (NEGATIVE); URINE SPECIFIC GRAVITY 1.005; UROBILINOGEN,URINE NEGATIVE mg/dL (<2.0)
[2020-06-07 10:43] VITALS: BP 138/83
== END 2020-06-07 10:43 | disposition home or self-care (01) ==
LOC: ER 08:43
DX: N23 Unspecified renal colic (principal); Z88.0 Allergy status to penicillin
CPT/HCPCS: 81001; 99283